=== PATIENT | male | born 1945 | race Caucasian/White ===

== ENCOUNTER 2019-02-03 12:23 | Outpatient (CLI) | payer OTHER | END 2019-02-03 13:43 | disposition home or self-care (01) | LOC: LAB 12:23 | DX: I10 Essential (primary) hypertension (principal); E11.9 Type 2 diabetes mellitus without complications ==

== ENCOUNTER 2019-02-15 10:27 | Inpatient (IN) | payer OTHER ==
[~2019-02-15] VITALS: Ht 162.6 cm; Wt 59.0 kg
[~2019-02-15 10:27] MED LIST: ASA81 MG PO; BACTRIM DS TAB1 EACH PO; FINASTERIDE5 MG PO; FUSION PLUS CA1 EACH PO; GLUCOTROL10 MG PO; RAPAFLO8 MG PO; VASOTEC2.5 MG PO
== END 2019-02-17 12:07 | disposition home or self-care (01) | DRG 714 ==
LOC: CIR.AMB 10:27 → O/R 16:00 → SURH 02-16 14:42
PROVIDERS: ADMIT Urology
PROC: 0VT08ZZ Resection of Prostate, Via Natural or Artificial Opening Endoscopic (ICD-10-PCS; principal; 2019-02-15 07:00)
DX: N40.1 Benign prostatic hyperplasia with lower urinary tract symptoms (principal); R33.8 Other retention of urine

== ENCOUNTER → 2019-02-19 | Emergency (ER) | payer OTHER ==
[~2019-02-19] VITALS: Ht 132.1 cm; Wt 65.3 kg
== END | disposition home or self-care (01) ==
LOC: ER 11:34
DX: Z46.6 Encounter for fitting and adjustment of urinary device (principal)